=== PATIENT | male | born 1975 | race African-American/Black ===

== ENCOUNTER 2018-03-24 09:17 | Day surgery (SDC) | payer OTHER ==
[~2018-03-24] VITALS: Ht 182.9 cm; Wt 85.4 kg
[2018-03-24] VITALS (8 sets, daily range): BP systolic 127–160; BP diastolic 70–114; PULSE 78–90
[2018-03-24] MEDS ORDERED: PRINIVIL10 MG PO (10:58)
[2018-03-24] MEDS ORDERED: NORVASC 5MG5 MG/TAB PO (10:59)
[2018-03-24] MEDS ORDERED: PROAIR HFA0.09 MG/AC IH (11:00)
[2018-03-24] MEDS ORDERED: INDERAL60 MG PO (11:01)
[2018-03-24 11:04] LABS: HEMATOCRIT 44.4 % (42.0-52.0); HEMOGLOBIN 14.7 g/dl (13.5-18.0); MEAN CELL VOLUME 81 fl (80.0-100.0); MEAN CORPUSCULAR HEMOGLOBIN 27 pg (27.0-31.0); MEAN CORPUSCULAR HGB CONC 33 g/dl (33.0-37.0); MEAN PLATELET VOLUME 10.6 fl (7.4-10.4); PLATELET COUNT 178 K/mm3 (130-400); REDCELL DISTRIBUTION WIDTH-CV 13.9 % (11.5-14.5)
[2018-03-24 11:05] LABS: INR 1.1 (0.8-3.0); PROTHROMBIN TIME 12.2 SECONDS (9.7-12.8)
[2018-03-24 11:11] LABS: CREATININE, serum 0.9 mg/dL (0.66-1.25); POTASSIUM 4.4 mmol/L (3.4-5.0)
== END 2018-03-24 15:23 | disposition home or self-care (01) ==
LOC: COL.CAR 09:17
PROVIDERS: Internal Medicine Cardiovascular Disease
DX: R07.9 Chest pain, unspecified (principal); R94.39 Abnormal result of other cardiovascular function study; I10 Essential (primary) hypertension; Z83.3 Family history of diabetes mellitus; Z82.49 Family history of ischemic heart disease and other diseases of the circulatory system
CPT/HCPCS: J1644; J2250; J3010; Q9967